=== PATIENT | female | born 1960 | race Caucasian/White ===

== ENCOUNTER 2017-01-08 14:29 | Emergency (ER) | payer BC, OTHER ==
[~2017-01-08] VITALS: Ht 162.6 cm; Wt 72.7 kg
[~2017-01-08 14:29] MED LIST: ASPIRIN 81M81 MG/TA2 PO; ASPIRIN E.C. 8181 MG PO; BENAZEPRIL HCT1 TAB PO; CALCIUM 600600 MG PO; CALCIUM1 CAP PO; CELEXA10 MG PO; CITALOPRAM20 MG PO; D3-5050000 IU PO; FISH OIL PO; FLAXOIL PO; GLUCOSAMINE 1000 PO; GLUCOSAMINE S1000 MG PO; GRALISE300 MG PO; HYDROXYCHLOROQ200 MG PO; LOTENSIN 1010 MG/TAB PO; MASON NATURAL1000 IU PO; MULTIPLE VITAMI1 CAP PO; MULTIVITAMIN1 CTB PO; NEURONTIN300 MG PO; NEURONTIN300 MG/CAP PO; OMEGA 31000 MG PO; PLAQUENIL 200M200 MG PO; PREMARIN VAG42.5 GM VG; VITAMIN C500 MG PO; ZANTAC 7575 MG PO; ZOCOR 20MG20 MG PO; ZOCOR10 MG PO; ZYRTEC 10MG10 MG PO
[2017-01-08 14:33] VITALS: TEMP 98.2
[2017-01-08 15:59] VITALS: BP 121/70; PULSE 69
== END 2017-01-08 16:00 | disposition home or self-care (01) ==
LOC: COL.ER 14:29
DX: S06.0X9A Concussion with loss of consciousness of unspecified duration, initial encounter (principal); S00.83XA Contusion of other part of head, initial encounter; W22.8XXA Striking against or struck by other objects, initial encounter; Y92.009 Unspecified place in unspecified non-institutional (private) residence as the place of occurrence of the external cause; Z79.84 Long term (current) use of oral hypoglycemic drugs

== ENCOUNTER → 2017-04-27 | Outpatient (CLI) | payer BC, OTHER | LOC: MC.RAD 16:28 | DX: Z12.31 Encounter for screening mammogram for malignant neoplasm of breast (principal) ==

== ENCOUNTER → 2019-05-30 | Outpatient (CLI) | payer BC, OTHER | LOC: MC.RAD 14:34 | DX: Z12.31 Encounter for screening mammogram for malignant neoplasm of breast (principal) ==

== ENCOUNTER → 2020-09-29 | Outpatient (CLI) | payer BC, OTHER | LOC: COL.RAD 09:44 | DX: M51.36 Other intervertebral disc degeneration, lumbar region (principal); M47.816 Spondylosis without myelopathy or radiculopathy, lumbar region; M54.16 Radiculopathy, lumbar region ==

== ENCOUNTER → 2020-10-13 | Outpatient (CLI) | payer BC, OTHER | LOC: COL.RAD 10-09 14:00 | DX: M51.26 Other intervertebral disc displacement, lumbar region (principal); M47.816 Spondylosis without myelopathy or radiculopathy, lumbar region; M47.817 Spondylosis without myelopathy or radiculopathy, lumbosacral region; M54.10 Radiculopathy, site unspecified | CPT/HCPCS: A9585 ==

== ENCOUNTER → 2021-02-02 | Outpatient (CLI) | payer BC, OTHER | LOC: MHCPAIN 08:05 | DX: M47.817 Spondylosis without myelopathy or radiculopathy, lumbosacral region (principal); M96.1 Postlaminectomy syndrome, not elsewhere classified; M53.3 Sacrococcygeal disorders, not elsewhere classified; M54.5 Low back pain | CPT/HCPCS: G0463 ==

== ENCOUNTER 2021-03-25 15:45 | Outpatient (RCR) | payer BC, OTHER | END 2021-05-10 08:59 | disposition home or self-care (01) | LOC: WSC 15:45 | DX: M47.896 Other spondylosis, lumbar region (principal) ==

== ENCOUNTER → 2021-04-13 | Outpatient (CLI) | payer BC, OTHER | LOC: MHCPAIN 15:07 | DX: M47.816 Spondylosis without myelopathy or radiculopathy, lumbar region (principal); M54.16 Radiculopathy, lumbar region; M53.3 Sacrococcygeal disorders, not elsewhere classified; M96.1 Postlaminectomy syndrome, not elsewhere classified | CPT/HCPCS: G0463 ==

== ENCOUNTER → 2021-04-26 | Outpatient (CLI) | payer BC, OTHER | LOC: MHCPAIN 10:09 | DX: M47.817 Spondylosis without myelopathy or radiculopathy, lumbosacral region (principal); M53.3 Sacrococcygeal disorders, not elsewhere classified; M54.16 Radiculopathy, lumbar region | CPT/HCPCS: J1100; Q9967 ==

== ENCOUNTER → 2021-05-27 | Outpatient (CLI) | payer BC, OTHER | LOC: MHCPAIN 12:53 | DX: M47.816 Spondylosis without myelopathy or radiculopathy, lumbar region (principal); M54.16 Radiculopathy, lumbar region; M53.3 Sacrococcygeal disorders, not elsewhere classified; M96.1 Postlaminectomy syndrome, not elsewhere classified | CPT/HCPCS: G0463 ==

== ENCOUNTER → 2021-06-03 | Outpatient (CLI) | payer BC, OTHER | LOC: MHCPAIN 07:44 | DX: M54.17 Radiculopathy, lumbosacral region (principal); M53.3 Sacrococcygeal disorders, not elsewhere classified | CPT/HCPCS: J1100; Q9967 ==

== ENCOUNTER → 2021-08-04 | Outpatient (CLI) | payer BC, OTHER | LOC: MHCPAIN 08:10 | DX: M47.817 Spondylosis without myelopathy or radiculopathy, lumbosacral region (principal); M54.50 Low back pain, unspecified; M53.3 Sacrococcygeal disorders, not elsewhere classified; M96.1 Postlaminectomy syndrome, not elsewhere classified | CPT/HCPCS: G0463 ==

== ENCOUNTER → 2021-09-14 | Outpatient (CLI) | payer BC, OTHER | LOC: MC.RAD 06:56 | DX: Z12.31 Encounter for screening mammogram for malignant neoplasm of breast (principal) ==

== ENCOUNTER 2021-12-10 14:53 | Emergency (ER) | payer BC, OTHER ==
[~2021-12-10] VITALS: Ht 160 cm; Wt 71.8 kg
[2021-12-10 15:09] VITALS: PULSE 59; TEMP 98.1
[2021-12-10 17:07] VITALS: BP 119/73
== END 2021-12-10 17:09 | disposition home or self-care (01) ==
LOC: COL.ER 14:53
DX: M79.662 Pain in left lower leg (principal); Z79.82 Long term (current) use of aspirin

== ENCOUNTER → 2021-12-14 | Outpatient (CLI) | payer BC, OTHER | LOC: COL.VAS 07:47 | DX: M79.662 Pain in left lower leg (principal); M79.89 Other specified soft tissue disorders; Z96.652 Presence of left artificial knee joint ==

== ENCOUNTER → 2023-04-25 | Outpatient (CLI) | payer BC, OTHER | LOC: MHCPAIN 09:52 | DX: M47.817 Spondylosis without myelopathy or radiculopathy, lumbosacral region (principal); M51.26 Other intervertebral disc displacement, lumbar region; M35.9 Systemic involvement of connective tissue, unspecified; I10 Essential (primary) hypertension | CPT/HCPCS: G0463 ==

== ENCOUNTER → 2024-01-11 | Outpatient (CLI) | payer BC, OTHER | LOC: MC.RAD 16:27 | DX: Z12.31 Encounter for screening mammogram for malignant neoplasm of breast (principal) ==

== ENCOUNTER → 2024-02-21 | Outpatient (CLI) | payer BC, OTHER | LOC: MHCPAIN 08:16 | DX: M47.817 Spondylosis without myelopathy or radiculopathy, lumbosacral region (principal); M51.26 Other intervertebral disc displacement, lumbar region; M96.1 Postlaminectomy syndrome, not elsewhere classified | CPT/HCPCS: G0463 ==

== ENCOUNTER → 2024-02-26 | Outpatient (CLI) | payer BC, OTHER ==
[~2024-02-26] MED LIST changes: +Iohexol 300 - 10 ML VIAL ONE
== END ==
LOC: MHCPAIN 08:35
DX: M54.50 Low back pain, unspecified (principal); M46.1 Sacroiliitis, not elsewhere classified; M53.3 Sacrococcygeal disorders, not elsewhere classified
CPT/HCPCS: G0260; J0665; J1010; Q9967

== ENCOUNTER → 2024-03-25 | Outpatient (CLI) | payer BC, OTHER ==
[~2024-03-25] MED LIST changes: -Iohexol 300 - 10 ML VIAL ONE
== END ==
LOC: MHCPAIN 12:39
DX: M51.26 Other intervertebral disc displacement, lumbar region (principal); M96.1 Postlaminectomy syndrome, not elsewhere classified; I10 Essential (primary) hypertension
CPT/HCPCS: G0463